=== PATIENT | male | born 1980 | race Caucasian/White ===

== ENCOUNTER 2021-05-15 16:24 | Emergency (ER) | payer OTHER ==
[~2021-05-15] VITALS: Ht 170.2 cm; Wt 86.2 kg
[~2021-05-15 16:24] MED LIST: BENTYL 20 MG TA20 M1 PO; CARAFATE 1 GM TA1 G1 PO; HYDROCODONE-AP1 EAC6; HYDROCODONE-AP1 EAC6 PO; ONDANSETRON HCL4 M2 PO; PREDNISONE 20 M20 MG
[2021-05-15] MEDS ORDERED: NEURONTIN 300M300 M2 PO (16:39)
[2021-05-15] MEDS ORDERED: NORCO7.5 PO (16:39)
[2021-05-15 18:19] VITALS: BP 164/98
--- NOTE | 2021-05-16 15:20 | EKG ---
[place] [address] ELECTROCARDIOGRAM REPORT Name: NITA OROZCO Room: [facility]#: [id number] Admission: 05/15/21 Attend Phys: Discharge: 05/15/21 Date of : 80 Date of Service: 05/15/21 1631 Report #: [id number] THIS REPORT FOR: //name// [facility] ED Test Date: 2021-05-15 Test Time: 16:31:05 Pat Name: NITA OROZCO Department: Room: Gender: [place]bur[place] Operator: : 1980 Requested By: Ramos Aburto Order Number: [id number] MD: Robert Bone Measurements Intervals [place] Rate: 71 P: 19 OK: 161 QRS: 28 QRSD: 102 T: 0 QT: 384 QTc: 418 Interpretive Statements Sinus rhythm Probable left ventricular hypertrophy Compared to ECG 11/29/2015 23:13:41 ST (T wave) deviation no longer present Electronically Signed On 05-16-2021 15:20:17 KEG [employer]ILLER by Robert Bone [email or web address] <ELECTRONICALLY SIGNED> By: Robert Bone MD, FACC 05/16/21 1520 1631 1631 Robert Bone MD, FAC /EPI
== END 2021-05-15 18:20 | disposition left against medical advice (07) ==
LOC: M.ERS 16:24
DX: R07.89 Other chest pain (principal); Z53.21 Procedure and treatment not carried out due to patient leaving prior to being seen by health care provider